=== PATIENT | male | born 1990 | race Two or more races ===

== ENCOUNTER → 2019-07-15 12:49 | Outpatient (CLI) | payer OTHER | END | disposition home or self-care (01) | LOC: LAB 12:49 | DX: E78.49 Other hyperlipidemia (principal); Z00.00 Encounter for general adult medical examination without abnormal findings; E55.9 Vitamin D deficiency, unspecified; R42 Dizziness and giddiness ==

== ENCOUNTER → 2019-07-15 | Outpatient (CLI) | payer OTHER | END | disposition home or self-care (01) | LOC: RAD 13:59 | DX: S66.105A Unspecified injury of flexor muscle, fascia and tendon of left ring finger at wrist and hand level, initial encounter (principal) ==

== ENCOUNTER → 2019-08-19 11:20 | Outpatient (CLI) | payer OTHER | END | disposition home or self-care (01) | LOC: LAB 11:20 | DX: J11.1 Influenza due to unidentified influenza virus with other respiratory manifestations (principal) ==